=== PATIENT | male | born 1995 | race Caucasian/White ===

== ENCOUNTER 2024-06-04 15:18 | Emergency (ER) | payer MEDICAID ==
[~2024-06-04] VITALS: Ht 190.5 cm; Wt 83.6 kg
[2024-06-04 15:21] VITALS: BP 127/74; PULSE 73; RESP 14; TEMP 98.7; O2SAT 98
[2024-06-04] MEDS ORDERED: ACET-1025 PO (18:10)
[2024-06-04] MEDS ORDERED: IBUP-1986 PO (18:10)
== END 2024-06-04 17:21 | disposition left against medical advice (07) ==
LOC: ER 15:19
DX: S93.402A Sprain of unspecified ligament of left ankle, initial encounter (principal); Z88.2 Allergy status to sulfonamides; V89.2XXA Person injured in unspecified motor-vehicle accident, traffic, initial encounter; Y93.89 Activity, other specified; Y92.89 Other specified places as the place of occurrence of the external cause; Y99.8 Other external cause status
CPT/HCPCS: 73610; 73630; 99284